=== PATIENT | female | born 1965 | race Two or more races ===

== ENCOUNTER 2016-10-10 10:18 | Emergency (ER) | payer MEDICAID, OTHER, SELFPAY ==
[~2016-10-10] VITALS: Ht 147.3 cm; Wt 110.0 kg
[2016-10-10 10:20] VITALS: BP 161/101
[2016-10-10] MEDS ORDERED: DIPH,PERTUSS(ACELL),TET VAC/PF 0.5 ML IM-VACC ONE ×2 (11:13→11:30)
== END 2016-10-10 12:19 | disposition home or self-care (01) ==
LOC: ED 12:00
DX: S61.211A Laceration without foreign body of left index finger without damage to nail, initial encounter (principal); K50.90 Crohn's disease, unspecified, without complications; W31.89XA Contact with other specified machinery, initial encounter; Y93.89 Activity, other specified; Y92.810 Car as the place of occurrence of the external cause; Y99.8 Other external cause status
CPT/HCPCS: 12001; 90471; 90715

== ENCOUNTER 2019-01-12 13:45 | Emergency (ER) | payer MEDICAID ==
[~2019-01-12] VITALS: Ht 147.3 cm; Wt 113.7 kg
--- NOTE | 2019-01-12 13:59 | NUR ---
AMBULATORY TO ED ROOM 19 W/ STEADY GAIT
--- NOTE | 2019-01-12 14:24 | NUR ---
THIS IS A 53 YO F WHO C/O LEFT SIDED PAIN AND WEAKNESS FROM HER SHOULDER TO HER FOOT. ONSET APPROXIMATELY 1 MONTH AGO. NO FACIAL DROOP OR ARM DRIFT OBSERVED. CLEAR SPEECH AND THOUGHTS ORGANIZED. RESPIRATIONS EVEN AND UNLABORED. PATIENT IS IN NO ACUTE DISTRESS. RESTING ON GURNEY WITH CALL LIGHT IN REACH.
[2019-01-12 14:42] LABS: BASOPHILS # (AUTO) 0.03 x10^3/uL (0-0.1); BASOPHILS % (AUTO) 1 % (0-1); EOSINOPHILS # (AUTO) 0.16 x10^3/uL (0-0.4); EOSINOPHILS % (AUTO) 3 % (1-7); LYMPHOCYTES # (AUTO) 2.04 x10^3/uL (1-3.4); LYMPHOCYTES % (AUTO) 36 % (22-44); MD NO; MEAN CORPUSCULAR HEMOGLOBIN 30.3 pg (27.0-34.8); MEAN CORPUSCULAR HGB CONC 32.9 g/dL (32.4-35.8); MEAN CORPUSCULAR VOLUME 92.2 fL (80-100); MEAN PLATELET VOLUME 9.6 fL (7.4-10.4); MONOCYTES # (AUTO) 0.54 x10^3/uL (0.2-0.8); MONOCYTES % (AUTO) 10 % (2-9); NEUTROPHILS % (AUTO) 51 % (42-75); PLATELET COUNT 246 x10^3/uL (130-400); RED BLOOD COUNT 5.13 x10^6/uL (3.82-5.3); RED CELL DISTRIBUTION WIDTH 15.3 % (9.6-15.2)
[2019-01-12 14:50] LABS: ALANINE AMINOTRANSFERASE 36 U/L (12-78); ALBUMIN 3.3 g/dL (3.4-5.0); ANION GAP 6 mmol/L (5-15); CALCIUM 8.5 mg/dL (8.5-10.1); CHLORIDE 110 mmol/L (98-107); CREATININE 0.89 mg/dL (0.55-1.02)
[2019-01-12 14:54] LABS: ALKALINE PHOSPHATASE 95 U/L (45-117); BILIRUBIN,TOTAL 0.4 mg/dL (0.2-1.0); TOTAL PROTEIN 7.5 g/dL (6.4-8.2); TROPONIN I < 0.015 ng/mL (0.000-0.045)
[2019-01-12 15:30] VITALS: BP 124/86
--- NOTE | 2019-01-12 15:32 | NUR ---
PATIENT RESTING ON GURNEY WATCHING TV WITH FAMILY AT BEDSIDE. CALL LIGHT IS IN REACH. DENIES FURTHER NEEDS AT THIS TIME.
--- NOTE | 2019-01-12 16:32 | NUR ---
Patient given discharge instructions and they have confirmed that they understand the instructions. Patient ambulatory with steady gait.
== END 2019-01-12 16:34 | disposition home or self-care (01) ==
LOC: ED 14:52
DX: M54.16 Radiculopathy, lumbar region (principal); M79.10 Myalgia, unspecified site; I10 Essential (primary) hypertension; E78.00 Pure hypercholesterolemia, unspecified; K50.90 Crohn's disease, unspecified, without complications; Z21 Asymptomatic human immunodeficiency virus [HIV] infection status
CPT/HCPCS: 36415; 70450; 71045; 80053; 83735; 83880; 84443; 84484; 85025; 93005; 99284